=== PATIENT | female | born 1960 | race Caucasian/White ===

== ENCOUNTER 2019-04-18 13:11 | Emergency (ER) | payer OTHER ==
[~2019-04-18] VITALS: Ht 149.8 cm; Wt 97.5 kg
[~2019-04-18 13:11] MED LIST: ASPIRIN325 M2 PO; BACTRIM DS 8001 TA1 PO; GLYBURIDE5 MG PO; HYDROCODONE BIT1 T11 PO; LOVASTATIN10 MG PO; METFORMIN500 MG PO; NAPROSYN500 MG PO; NYSTATIN OINTME30 GM T; PAROXETINE20 MG PO; REQUIP1 MG PO; RESTASIS 0.4 M0.4 M1 OU; RESTASIS0.05% INTRAOC; XANAX0.5 MG PO; ZESTRIL2.5 MG PO
[2019-04-18] MEDS ORDERED: DOXYCYCLINE100 M3 PO (14:42)
== END 2019-04-18 14:51 | disposition home or self-care (01) ==
LOC: ED 13:11
DX: L02.212 Cutaneous abscess of back [any part, except buttock and flank] (principal); I10 Essential (primary) hypertension; E11.9 Type 2 diabetes mellitus without complications; Z79.899 Other long term (current) drug therapy; Z79.82 Long term (current) use of aspirin